=== PATIENT | female | born 1965 | race Two or more races ===

== ENCOUNTER 2019-05-27 06:54 | Day surgery (SDC) | payer OTHER ==
[~2019-05-27] VITALS: Ht 175.3 cm; Wt 92.3 kg
[~2019-05-27 06:54] MED LIST: BENA5TAB33 PO; BENAZEPRIL PO; CARV3.1260 PO; CARVEDILOL PO; LEVO25TA6 PO; LEVOTHYROXINE PO
[2019-05-27 07:55] VITALS: Ht 175.3 cm; Wt 92.3 kg
[2019-05-27] MEDS ORDERED: ESOMEPRAZOLE PO (08:06)
[2019-05-27 08:10] VITALS: BP 118/70; PULSE 50; RESP 18
--- NOTE | 2019-05-27 08:24 | PREAC ---
Date/Time of Note Date/Time of Note DATE: 05/27/19 TIME: 08:22 Anesthesia Eval and Record Evaluation Time Pre-Procedure Interview DATE: 05/27/19 TIME: 08:22 Age 53 Sex female NPO: 8 hrs Preoperative diagnosis DYSPHAGIA Planned procedure EGD WITH BIOPSIES Past Medical History Past Medical History: Includes (MUSCULAR DYTROPHY WITH LEG WEAKNESS) Endo: Hypothyroid Surgery & Anesthesia Issues No known issue (HYSTERECTOMY, THYROIDECTOMY) Meds Anticoagulation: No Beta Jj within 24 hr: No Reason Beta Jj not given: Pt. not on B-Jj Reported Medications [Esomeprazole] No Conflict Check, PO 05/27/19 Levothyroxine Sodium* (Levothyroxine Sodium*) 25 Mcg Tablet, 25 MCG PO BEFORE BREAKFAST, #30 TAB 09/17/16 Carvedilol* (Carvedilol*) 3.125 Mg Tablet, 1 MG PO BID, #60 TAB 09/17/16 Benazepril Hcl* (Benazepril Hcl*) 5 Mg Tablet, 5 MG PO BID, #60 TAB 09/17/16 Discontinued Reported Medications [Levothyroxine] No Conflict Check, PO 06/19/16 [Benazepril] No Conflict Check, PO 06/19/16 [Carvedilol] No Conflict Check, PO 06/19/16 Meds reviewed: Yes Allergies Coded Allergies: No Known Allergy (Unverified , 06/19/16) Allergies Reviewed: Yes Labs/Studies Labs Reviewed: Reviewed by anesthesiologist test: N/A Pre-procedure Exam Last vitals Vital Signs Date Temp Pulse Resp B/P (MAP) Pulse Ox O2 O2 Flow FiO2 Time Delivery Rate 05/27/19 98.0 50 18 118/70 95 Room Air 08:10 (86) Airway: Adequate mouth opening, Adequate thyromental dist Mallampati: Mallampati II Teeth: Normal Lung: Normal Heart: Normal ASA Physical Status ASA physical status: 2 Emergency: None Planned Anesthetic General/MAC: MAC Planned Pain Management Parenteral pain med Pre-operative Attestations Prior to commencing anesthesia and surgery, the patient was re-evaluated, there was verification of: *The patient's identity *The results of appropriate recent lab work and preoperative vital signs *The above evaluation not changing prior to induction *Anesthetic plan, risk benefits, alternative and complications discussed with patient/family; questions answered; patient/family understands, accepts and wishes to proceed. Harley Patel M.D. May 27, 2019 08:24
[2019-05-27] MEDS ORDERED: LIDOCAINE 100 MG SYRINGE ONE (08:25)
[2019-05-27] MEDS ORDERED: FENTAnyl 50 MCG/ML VIAL ONE (08:25)
[2019-05-27] MEDS ORDERED: PROPOFOL 20 ML ONE (08:25)
--- NOTE | 2019-05-27 08:44 | PAC ---
Date/Time of Note Date/Time of Note DATE: 05/27/19 TIME: 08:44 Post-Anesthesia Notes Post-Anesthesia Note Last documented vital signs Vital Signs Date Temp Pulse Resp B/P (MAP) Pulse Ox O2 O2 Flow FiO2 Time Delivery Rate 05/27/19 98.0 50 18 118/70 95 Room Air 08:10 (86) Activity: WNL Respiratory function: WNL Cardiovascular function: WNL Mental status: Baseline Pain reasonably controlled: Yes Hydration appropriate: Yes Nausea/Vomiting absent: Yes Harley Patel M.D. May 27, 2019 08:44
[2019-05-27 10:46] VITALS: BP 142/70; PULSE 55; RESP 18
== END 2019-05-27 10:39 | disposition home or self-care (01) ==
LOC: GIL 06:54
PROVIDERS: ATTEND Internal Medicine Gastroenterology
DX: K29.50 Unspecified chronic gastritis without bleeding (principal)
CPT/HCPCS: 43239; 88305; 88312; J2001; J3010; Z7610